=== PATIENT | female | born 2000 | race African-American/Black ===

== ENCOUNTER 2023-08-19 21:40 | Emergency (ER) | payer SELFPAY ==
[~2023-08-19] VITALS: Ht 167.6 cm; Wt 79.5 kg
[2023-08-19] MEDS ORDERED: IBUP-45 PO (23:31)
[2023-08-19] MEDS ORDERED: ACET-66 PO (23:31)
[2023-08-20] VITALS: TEMP 98.3
[2023-08-20 00:45] VITALS: BP 124/70; PULSE 71; RESP 18
== END 2023-08-20 01:00 | disposition home or self-care (01) ==
LOC: EMS 21:45
DX: O26.892 Other specified pregnancy related conditions, second trimester (principal); S62.306A Unspecified fracture of fifth metacarpal bone, right hand, initial encounter for closed fracture; Z3A.21 21 weeks gestation of pregnancy; W18.39XA Other fall on same level, initial encounter; Y93.73 Activity, racquet and hand sports; Y92.89 Other specified places as the place of occurrence of the external cause; Y99.8 Other external cause status
CPT/HCPCS: 99283